=== PATIENT | male | born 1960 | race Caucasian/White ===

== ENCOUNTER 2018-11-05 16:54 | Emergency (ER) | payer OTHER ==
[~2018-11-05] VITALS: Ht 180.3 cm; Wt 110.8 kg
[2018-11-05 16:57] VITALS: BP 167/108
[2018-11-05] MEDS ORDERED: MICROFIBRILLAR COLLAGEN 0.5GM/PACK TP ONE (17:30)
[2018-11-05] MEDS ORDERED: LORA0.5P PO (17:40)
[2018-11-05] MEDS ORDERED: INDO25CA5 PO (17:40)
[2018-11-05] MEDS ORDERED: CEPHALEXIN 500 MG CAPSULE ONE (17:43)
[2018-11-05] MEDS ORDERED: MICROFIBRILLAR COLLAGEN 1 GM TP ONE (17:43)
[2018-11-05] MEDS ORDERED: CEPHALEXIN 500 MG CAPSULE PO ONE (18:00)
[2018-11-05] MEDS ORDERED: LIDOCAINE-MPF 1%, 5ML ONE (18:08)
[2018-11-05] MEDS ORDERED: LIDOCAINE-MPF 1%, 5ML INFIL ONE (18:30)
== END 2018-11-05 19:35 | disposition home or self-care (01) ==
LOC: ED 18:43
DX: S62.636B Displaced fracture of distal phalanx of right little finger, initial encounter for open fracture (principal); W27.8XXA Contact with other nonpowered hand tool, initial encounter; Y93.89 Activity, other specified; Y92.69 Other specified industrial and construction area as the place of occurrence of the external cause; Y99.0 Civilian activity done for income or pay
CPT/HCPCS: 99283

== ENCOUNTER 2018-11-07 11:25 | Emergency (ER) | payer OTHER ==
[~2018-11-07] VITALS: Ht 177.8 cm; Wt 110.0 kg
[~2018-11-07 11:25] MED LIST: INDO25CA5 PO; LORA0.5P PO
[2018-11-07 12:07] VITALS: BP 149/106
[2018-11-07] MEDS ORDERED: BACITRACIN ZINC OINT 500U/GM, 0.9 GM ONE (12:54)
== END 2018-11-07 13:07 | disposition home or self-care (01) ==
LOC: ED 13:01
DX: S61.206A Unspecified open wound of right little finger without damage to nail, initial encounter (principal); X58.XXXA Exposure to other specified factors, initial encounter; Y93.89 Activity, other specified; Y92.89 Other specified places as the place of occurrence of the external cause; Y99.8 Other external cause status
CPT/HCPCS: 99283

== ENCOUNTER 2021-05-23 20:03 | Emergency (ER) | payer OTHER ==
[~2021-05-23] VITALS: Ht 177.8 cm; Wt 96.4 kg
[~2021-05-23 20:03] MED LIST changes: +INDO25CA22 PO; -INDO25CA5 PO
[2021-05-23] MEDS ORDERED: LIDOCAINE-MPF 1%, 2ML INFIL ONE (20:30)
[2021-05-23] MEDS ORDERED: LIDOCAINE-MPF 1%, 5ML ONE (20:33)
[2021-05-23] MEDS ORDERED: NEOSPORIN OINT. PKT 1 PACKET ONE (21:19)
[2021-05-23] MEDS ORDERED: DIPH,PERTUSS(ACELL),TET VAC/PF 0.5 ML IM-VACC ONE ×2 (21:30→21:47)
[2021-05-23 21:49] VITALS: BP 153/91
--- NOTE | 2021-05-23 21:50 | NUR ---
TASK RN: Patient given discharge instructions and they have confirmed that they understand the instructions. Patient ambulatory with steady gait. NAD, all questions answered appropriately, denies additional needs at this time. No personal belongings left in room after discharge.
== END 2021-05-23 22:10 | disposition home or self-care (01) ==
LOC: ED 22:08
DX: S61.210A Laceration without foreign body of right index finger without damage to nail, initial encounter (principal); W26.0XXA Contact with knife, initial encounter; Y93.89 Activity, other specified; Y92.89 Other specified places as the place of occurrence of the external cause; Y99.8 Other external cause status
CPT/HCPCS: 12041; 90471; 90715; 99284; J3490

== ENCOUNTER 2021-06-02 16:08 | Emergency (ER) | payer OTHER ==
[~2021-06-02] VITALS: Ht 177.8 cm; Wt 95.3 kg
[2021-06-02 16:14] VITALS: BP 132/84
[2021-06-02] MEDS ORDERED: NEOSPORIN OINT. PKT 1 PACKET ONE (16:27)
== END 2021-06-02 16:42 | disposition home or self-care (01) ==
LOC: ED 16:35
DX: S61.210D Laceration without foreign body of right index finger without damage to nail, subsequent encounter (principal); F17.210 Nicotine dependence, cigarettes, uncomplicated; X58.XXXD Exposure to other specified factors, subsequent encounter
CPT/HCPCS: 99282